=== PATIENT | male | born 1970 | race Caucasian/White ===

== ENCOUNTER 2019-04-25 15:28 | Observation (INO) ==
[2019-04-25] MEDS ORDERED: NS 1,000 ML IV PRN (15:40)
--- NOTE | 2019-04-25 16:05 | Diag Imaging Result Doc PS360 ---
EXAM: CT HEAD W/O CONTRAST HISTORY: stroke like TECHNIQUE: CT head without intravenous contrast COMPARISON: 12/19/2018 FINDINGS: No parenchymal hemorrhage. No epidural or subdural hematoma. No subarachnoid hemorrhage. No mass identified on this noncontrasted exam. No hydrocephalus. Small amount mucus in the ethmoid sinuses. IMPRESSION: No hemorrhage. Negative brain CT without contrast. This exam was performed using automated exposure control, adjustment of mA or kV according to patient size, and/or use of iterative reconstruction technique. Electronically signed by Thanh Bowser 04/25/2019 4:03 PM
--- NOTE | 2019-04-25 16:06 | Diag Imaging Result Doc PS360 ---
EXAM: CHEST-PORTABLE INDICATION: Stroke like TECHNIQUE: One view COMPARISON: None. FINDINGS: The lungs are grossly clear. There is no discrete pleural fluid collection or pneumothorax. The cardiomediastinal silhouette and central vasculature are grossly unremarkable. IMPRESSION: No evidence of acute pathology by plain radiograph. Electronically signed by Javi Nelson 04/25/2019 4:03 PM
--- NOTE | 2019-04-25 16:08 | Diag Imaging Result Doc PS360 ---
EXAM : CT CERVICAL SPINE W/O CONTRAST HISTORY: neck pain TECHNIQUE: CT cervical spine without contrast COMPARISON: None. FINDINGS: Mild reversal of the normal curvature. No precervical soft tissue swelling. No subluxation. No fracture. No disc herniation identified. IMPRESSION: Cervical spine: No acute fracture. This exam was performed using automated exposure control, adjustment of mA or kV according to patient size, and/or use of iterative reconstruction technique. Electronically signed by Thanh Bowser 04/25/2019 4:05 PM
[2019-04-25 16:34] LABS: BASO# 0.09 X1000 (0.0-0.2); BASO% 0.9 % (0.0-0.8); EOS# 0.21 X1000 (0.0-0.7); EOS% 2.1 % (0.0-10.0); HEMATOCRIT 47.3 % (42.0-52.0); IMM GRAN# 0.02 X1000 (0.0-0.04); IMM GRAN% 0.2 % (0.0-0.5); LYMPH# 2.43 X1000 (1.2-3.4); LYMPH% 23.8 % (20.5-51.1); MCH 26.7 PG (27-31); MCHC 31.7 g/dL (33-37); MCV 84.3 FL (81-99); MONO# 0.85 X1000 (0.11-0.59); MONO% 8.3 % (1.7-9.3); MPV 10.4 FL (7.4-10.4); NEUT# 6.59 X1000 (1.4-6.5); NEUT% 64.7 % (42.2-75.2); PLT 257 X1000 (130-400); RBC 5.61 XMIL (4.7-6.1); RDW 14.8 % (11.5-14.5); WBC 10.19 X1000 (4.8-10.8)
[2019-04-25 17:06] LABS: AGAP 12; ALKALINE PHOSPHATASE 68 U/L (32-122); BUN 13 mg/dL (8-22); CALCIUM 8.6 mg/dL (8.8-10.2); CHLORIDE 103 mmol/L (98-107); COSMO 275; CREATININE 0.8 mg/dL (0.7-1.2); ESTIMATED GFR > 60; GLUCOSE 91 mg/dL (70-104); GOT 20 U/L (10-34); GPT 19 U/L (10-44); POTASSIUM 4.5 mmol/L (3.5-5.1); SODIUM 138 mmol/L (136-145); TCO2 24 mmol/L (25-35)
[2019-04-25 17:15] LABS: URINE SOURCE CLEAN CATCH
[2019-04-25 17:20] LABS: BILIRUBIN URINE NEGATIVE (NEGATIVE); BLOOD URINE NEGATIVE (NEGATIVE); COLOR YELLOW; GLUCOSE URINE NEGATIVE (NEGATIVE); KETONE URINE NEGATIVE (NEGATIVE); LEUKOCYTES URINE NEGATIVE (NEGATIVE); NITRITE URINE NEGATIVE (NEGATIVE); PROTEIN URINE NEGATIVE (NEGATIVE); SP GRAVITY URINE 1.007; TURBIDITY URINE CLEAR (CLEAR); UROBILINOGEN URINE NORMAL (NORMAL)
[2019-04-25 17:22] LABS: UR EPITHELIAL CELLS <10 /HPF (<10); URINE BACTERIA NEGATIVE /HPF; URINE RBC <10 /HPF (<10); URINE WBC <10 /HPF (<10)
[2019-04-25 17:23] LABS: INR 0.96; PROTIME 13.3 Seconds (11.0-16.0)
[2019-04-25 17:24] LABS: PTT 35.1 Seconds (22.3-41.8)
[2019-04-25 17:30] LABS: UR AMPHETAMINES QUAL NONE DETECTED (NONE DETECT); UR BARBITUATES QUAL NONE DETECTED (NONE DETECT); UR BENZODIAZEPIN QUAL NONE DETECTED (NONE DETECT); UR CANNABINOIDS QUAL NONE DETECTED (NONE DETECT); UR METHADONE QUAL NONE DETECTED (NONE DETECT); UR METHAMPHETAMINE QUAL NONE DETECTED (NONE DETECT); UR OPIATES QUAL NONE DETECTED (NONE DETECT); UR OXYCODONE QUAL NONE DETECTED (NONE DETECT); UR PCP QUAL NONE DETECTED (NONE DETECT); UR PROPOXYPHENE QUAL NONE DETECTED (NONE DETECT); UR TCA QUAL NONE DETECTED (NONE DETECT)
[2019-04-25 17:31] LABS: UR COCAINE QUAL NONE DETECTED (NONE DETECT)
--- NOTE | 2019-04-25 17:41 | PROVIDER DOCUMENTATION ---
This chart was entered by Katlyn Dallas Scribe, acting as scribe for Blank Cuellar MD. HPI-General Adult - General Chief Complaint: STROKE ALERT Stated Complaint: CHEST PAIN, LEFT SIDE NUMBNESS Time Seen by Provider: 04/25/19 15:43 Source: patient Allergies/Adverse Reactions: Patient Allergies Allergy/AdvReac Type Severity Reaction Status Date / Time Penicillins AdvReac HIVES Verified 04/25/19 16:40 Home Medications: Home Medication List Medication Instructions Recorded Confirmed Last Taken Type Lisinopril 1 tab PO DAILY 12/19/18 04/25/19 04/25/19 History 40mg Escitalopram Oxalate [Lexapro] 20 mg PO DAILY 04/25/19 04/25/19 04/25/19 09:00 History Pantoprazole [Protonix] 40 mg PO DAILY 04/25/19 04/25/19 04/25/19 09:00 History - History of Present Illness -Gen Adult Nature of Presenting Problems: 48 yowm presents to the ed via pov with multiple complaints. pt sts he noted around 11am today PINEDA, neck pain, mouth droop and chest pain with mild rt sided facial numbness. pt ambulated to er desk without assist and speech is clear on exam. pt is anxious and CC is PINEDA with neck pain. Location of Pain/Injury: reports: head, chest Pain Radiation: reports: neck Quality of Pain: reports: aching Severity: reports: severe Onset/Duration: reports: this morning (1100) Timing: reports: still present, constant, getting worse Context/Activities at Onset: reports: light activity Modifying Factors: improves with: nothing Associated Symptoms: reports: back/neck pain (posterior neck pain), chest pain, headaches, malaise, other (mouth droop with decreased sensation to rt face). denies: cough, diarrhea, fever/chills, nausea, shortness of breath, vomiting, weakness Similar Symptoms Previously?: No Recently seen or treated by another doctor?: No Review of Systems - Adult - REVIEW OF SYSTEMS - ADULT Constitutional: denies: chills, fever Eyes: denies: blurred vision, double vision Ears, Nose, Mouth & Throat: reports: no symptoms reported Cardiovascular: reports: see HPI, chest pain. denies: palpitations Respiratory: denies: cough, shortness of breath, wheezing Gastrointestinal: denies: diarrhea, nausea, vomiting Genitourinary: reports: no symptoms reported Musculoskeletal: reports: see HPI, neck pain. denies: back pain Integumentary: reports: no symptoms reported Neurological: reports: see HPI, headache/migraines, numbness (rt face), other (mouth droop). denies: ataxia, dizziness/vertigo, slurred speech Psychiatric: reports: no symptoms reported Endocrine: reports: no symptoms reported Hematologic/Lymphatic: reports: no symptoms reported Allergic/Immunologic: reports: no symptoms reported All Other Systems: Reviewed and Negative Past History - Adult - PAST MEDICAL HISTORY-ADULT Review of Records: reports: Old Records Reviewed, Nursing Assessment Review, Medications Reviewed, Social history reviewed & non-contributory. Major Childhood Illnesses: reports: denies history Cardiovascular: reports: HTN Respiratory: reports: denies history Gastrointestinal: reports: denies history Genitourinary: reports: kidney stones Musculoskeletal: reports: denies history Neurological: reports: denies history Psychiatric: reports: denies history Endocrine/Immune: reports: denies history Other Conditions: reports: denies history - PRIOR SURGERIES/PROCEDURES Surgical/Procedure History: reports: cholecystectomy - IMMUNIZATION STATUS Childhood Immunizations: See Nurse Assessment Flu Vaccine: See Nurse Assessment - FAMILY HISTORY Family History: reviewed, not pertinent - SOCIAL HISTORY Smoking: denies Substance Use: denies Living Situation: family Physical Exam-General - PHYSICAL EXAM-ADULT Initial Vital Signs Reviewed: Yes - CONSTITUTIONAL General Appearance: alert, mild distress, obese, anxious - EYES Eyes: PERRL/EOMI, pink conjunctivae - HEAD, EARS, NOSE, MOUTH & THROAT HENMT: moist mucous membranes, other (droop noted to mouth, numbness to rt side. pt has bilateral brow movement) - NECK Neck: normal inspection, tender lateral (posterior) - RESPIRATORY Respiratory: chest non-tender, lungs clear, normal breath sounds - CARDIOVASCULAR Cardiovascular: normal peripheral pulses, regular rate, rhythm - CHEST (BREASTS) Chest/Breast: deferred - GASTROINTESTINAL (ABDOMEN) Abdominal Exam: normal bowel sounds, non tender, soft - GENITOURINARY Male Genitalia: deferred Rectal Exam: deferred Hemoccult Exam: deferred - LYMPHATIC Lymphatic: no adenopathy - MUSCULOSKELETAL Back Exam: normal inspection, no CVA tenderness, no vertebral tenderness Extremity: normal range of motion, non-tender, normal gait, normal inspection, normal capillary refill, pelvis stable - SKIN Integumentary: normal color, normal turgor, warm/dry - NEUROLOGIC Neurologic: facial droop, sensory deficit (rt face). negative: aphasia, focal weakness, motor weakness - PSYCHIATRIC Psych/Mental Status: normal thought content, normal thought process, oriented x 3, anxious Progress - PLAN OF CARE/RESULTS Progress/Plan/Lab Results: Vital Signs - 8 hr 04/25/19 15:37 Temperature 98 F Pulse Rate 73 Respiratory Rate 20 Blood Pressure 167/100 O2 Sat by Pulse Oximetry 98 Laboratory Results - last 24 hr 04/25/19 15:33 POC Glucose 74 Orders Category Date Time Status Cardiac Monitoring DIRECTED Care 04/25/19 15:40 Active Finger Stick Blood Sugar (ED) DIRECTED Care 04/25/19 15:40 Active Misc. NRSG Communication Order DIRECTED Care 04/25/19 15:40 Active Oxygen Therapy- ED Nursing DIRECTED Care 04/25/19 15:40 Active Saline Loc NOW Care 04/25/19 15:40 Active CHEST-PORTABLE [RAD] Stat Exams 04/25/19 15:[address] HEAD W/O CONTRAST [CT] Stat Exams 04/25/19 15:[address] NECK W/O CONTRAST [CT] Stat Exams 04/25/19 15:44 Ordered CBC WITH ELECTRONIC DIFF [HEME] Stat Lab 04/25/19 15:40 Ordered COMPREHENSIVE METABOLIC PANEL [CHEM] Stat Lab 04/25/19 15:40 Uncollected PROTIME WITH INR [COAG] Stat Lab 04/25/19 15:40 Uncollected PTT [COAG] Stat Lab 04/25/19 15:40 Uncollected TROPONIN T HIGH SENSITIVITY Stat Lab 04/25/19 15:40 Uncollected URINALYSIS W/POSS RFLX CULT [URINALYSIS] Stat Lab 04/25/19 15:40 Uncollected URINE DRUG SCREEN PL Stat Lab 04/25/19 15:40 Uncollected 0.9% Sodium Chloride Inj [Ns] 1,000 ml Med 04/25/19 15:40 Ordered IV Wide Open mls/hr EKG [EKG] Stat Ther 04/25/19 15:40 Ordered Result Diagrams: 04/26/19 05:28 04/26/19 05:28 - REASSESSMENT Reassessment #1 Time Reassessed: 16:10 (dr at bedside speaking with pt) Status: unchanged Reassessment #2 Time Reassessed: 17:24 (pt has calmed and in no distress) Status: improving - XRAY 1 XRAY: Bilateral XRAY Study: Chest Impression: See EMR Report (EXAM: CHEST-PORTABLE INDICATION: Stroke like TECHNIQUE: One view COMPARISON: None. FINDINGS: The lungs are grossly clear. There is no discrete pleural fluid collection or pneumothorax. The cardiomediastinal silhouette and central vasculature are grossly unremarkable. IMPRESSION: No evidence of acute pathology by plain radiograph. Electronically signed by Javi Nelson 04/25/2019 4:03 PM 04/25/19 1603 Interpreting Physician: Javi Nelson MD Dictated Date/Time: 04/25/19 160 cc: Blank Cuellar MD; None,PCP) - CT/MRI 1 CT Study: Cervical Spine Impression: See EMR Report (EXAM : CT CERVICAL SPINE W/O CONTRAST HISTORY: neck pain TECHNIQUE: CT cervical spine without contrast COMPARISON: None. FINDINGS: Mild reversal of the normal curvature. No precervical soft tissue swelling. No subluxation. No fracture. No disc herniation identified. IMPRESSION: Cervical spine: No acute fracture. This exam was performed using automated exposure control, adjustment of mA or kV according to patient size, and/or use of iterative reconstruction technique. Electronically signed by Thanh Bowser 04/25/2019 4:05 PM 04/25/19 1605 Interpreting Physician: Thanh Bowser MD Dictated Date/Time: 04/25/19 1603 cc: Blank Cuellar MD; None,PCP) 2 CT Study: Head Impression: See EMR Report (EXAM: CT HEAD W/O CONTRAST HISTORY: stroke like TECHNIQUE: CT head without intravenous contrast COMPARISON: 12/19/2018 FINDINGS: No parenchymal hemorrhage. No epidural or subdural hematoma. No subarachnoid hemorrhage. No mass identified on this noncontrasted exam. No hydrocephalus. Small amount mucus in the ethmoid sinuses. IMPRESSION: No hemorrhage. Negative brain CT without contrast. This exam was performed using automated exposure control, adjustment of mA or kV according to patient size, and/or use of iterative reconstruction technique. Electronically signed by Thanh Bowser 04/25/2019 4:03 PM 04/25/19 1603 Interpreting Physician: Thanh Bowser MD Dictated Date/Time: 04/25/19 1601 cc: Blank Cuellar MD; None,PCP) - CONSULTS/PCP/HOSPITALIST Notification #1 *Consult/PCP/Hospitalist*: hospitalist dr jose Time Discussed: 17:25 Consult Disposition: Will see in ED, Admit Departure - Departure Date of Disposition Decision: 04/25/19 Time of Disposition Decision: 17:40 DIAGNOSIS: Facial palsy Disposition: ADMITTED INPATIENT 09 Certified Medical Emergency: Emergent Condition: Good - Critical Care Note This patient required my direct & personal management of CC.: Yes Total Time (mins): 36 Critical Care Statement: This patient required my direct personal management to treat or rule out processes, the absence of which, could potentiallly result in sudden, clinically significant life or limb threatening deterioration. Attestation - Physician/ JUAN DIEGO Attestation Patient care was provided by Advanced Practice Provider:: No The physician spent face to face time with patient:: Yes Advanced Practice Provider documentation review:: Supervising physician onsite and consulted in the evaluation and care of this patient. The physician did have a face to face encounter with the patient. This chart was documented by the indicated scribe, (Katlyn Dallas Scribe) and accurately reflects the services I performed and decisions made by Ludy ventura,Blank Sidhu MD, as attested by the provider's signature.
--- NOTE | 2019-04-25 21:43 | HISTORY AND PHYSICAL ---
CHIEF COMPLAINT: Left face numbness, chest pressure. HISTORY OF PRESENT ILLNESS: The patient is a very pleasant 48-year-old male who presented to the ER noting that he is having some chest pressure, shortness of breath, and tightness in his chest. States that he chronically has neck pain. Thankfully, CT was effectively negative. He had a head CT in the ER as well that was negative. Notes he is having difficulty smiling with weakness on his right side of his face, and has difficulty closing his right eye. States he has a significant headache and neck pain. He has been coughing and congested. He has been very anxious, nervous and worried. ALLERGIES: Penicillin causing hives. MEDICATIONS: Lisinopril. PAST MEDICAL HISTORY: Significant for renal stones, hypertension. PAST SURGICAL HISTORY: Cholecystectomy. FAMILY HISTORY: Noncontributory. SOCIAL HISTORY: The patient denies smoking or illicit substance use. He is employed; in fact, he was at work when his symptoms started. PHYSICAL EXAMINATION: VITAL SIGNS: Temperature 98, pulse 73, respiratory rate 20, BP 167/100, saturation 98% on room air. GENERAL: Patient is awake, pleasant. He is in no current respiratory distress. His speech is regular. Memory is intact. He was able to ambulate through the teresa to the exam room. HEENT: Normocephalic. He does have right-sided numbness as well as facial droop on the right side. He is able to extend both his eyebrows. He is unable to close his right eye tightly. NECK: Supple. CARDIOVASCULAR: Regular rate. No murmurs. CHEST: Clear, nonlabored. No wheezing. ABDOMEN: Soft, obese, nondistended, nontender. EXTREMITIES: Moves all extremities. NEUROLOGIC: No focal neurological changes otherwise. He has no focal weakness on the extremities. No focal appreciable numbness on his extremities. ASSESSMENT: 1. Hypertension with poor control. 2. Acute stress reaction. 3. Headache. 4. Facial palsy. Certainly looks like Bels palsy. PLAN: We are going to admit patient to the hospital, rule out PR. We are going to check his CT head, which has been done. Carotid in the a.m., and will follow his blood pressures. Further orders as needed. cc: Matt Ma MD
[2019-04-26 06:50] LABS: HEMATOCRIT 45.7 % (42.0-52.0); HEMOGLOBIN 14.3 g/dL (14.0-18.0); MCH 26.6 PG (27-31); MCHC 31.3 g/dL (33-37); MCV 84.9 FL (81-99); RBC 5.38 XMIL (4.7-6.1); RDW 14.9 % (11.5-14.5); WBC 10.77 X1000 (4.8-10.8)
[2019-04-26] MEDS ORDERED: PROTONIX PO SCH (07:00)
[2019-04-26 07:24] LABS: AGAP 12; ALBUMIN 3.4 g/dL (3.5-5.0); ALKALINE PHOSPHATASE 61 U/L (32-122); BUN 14 mg/dL (8-22); CALCIUM 8.7 mg/dL (8.8-10.2); CHLORIDE 103 mmol/L (98-107); COSMO 275; CREATININE 0.8 mg/dL (0.7-1.2); ESTIMATED GFR > 60; GLUCOSE 86 mg/dL (70-104); GOT 20 U/L (10-34); GPT 18 U/L (10-44); MAGNESIUM 2.1 mg/dL (1.5-2.7); POTASSIUM 4.3 mmol/L (3.5-5.1); SODIUM 138 mmol/L (136-145); TCO2 23 mmol/L (25-35); TOTAL PROTEIN 6.8 g/dL (6.3-8.3)
--- NOTE | 2019-04-26 07:43 | Vascular Study Report ---
EXAM: Carotid Ultrasound - 04/25/2019 HISTORY: cva TECHNIQUE: Carotid flow studies COMPARISON: None. FINDINGS: There is intimal thickening at the right carotid bulb. Maximal systolic velocity in the right internal carotid is 74 cm/s, and maximum diastolic velocity is 33 cm/s. The right internal to common carotid systolic velocity ratio is 0.8. The flow velocities and ratio are consistent with 0-39% stenosis at the right internal carotid. The right vertebral demonstrates antegrade flow. There is intimal thickening at the left carotid bulb. Maximal systolic velocity in the left internal carotid is 72 cm/s, and maximum diastolic velocity is 30 cm/s. The left internal to common carotid systolic velocity ratio is 0.7. The flow velocities and ratio are consistent with 0-39% stenosis at the left internal carotid. The left vertebral demonstrates antegrade flow. IMPRESSION: 0-39% stenosis at right internal carotid. 0-39% stenosis at left internal carotid. Electronically signed by Red Almanzar 04/26/2019 7:41 AM
[2019-04-26] MEDS ORDERED: LEXAPRO PO SCH (09:00)
[2019-04-26] MEDS ORDERED: PRINIVIL PO SCH (09:00)
--- NOTE | 2019-04-26 09:12 | ECHO REPORT ---
ORDER DATE: 04/26/2019 INTERPRETING PHYSICIAN: Boris Griffiths MD REQUESTING PHYSICIAN: Hospitalist at [facility]. INDICATION: Hypertension. Stroke. M-MODE MEASUREMENTS: Left ventricle end diastole: 5.4 cm. Left ventricle end systole: 2.3 cm. Posterior wall: 1.2 cm. Interventricular septum: 1.2 cm. Left atrium: 4.3 cm. Aortic diameter: 3.5 cm. SUMMARY OF 2-DIMENSIONAL IMAGIN. Left ventricular function is normal. Ejection fraction is estimated at 63%. There is no wall motion abnormality noted. 2. The left atrium appears to be significantly enlarged. 3. The aortic valve has three cusps and they open normally. Color flow mapping is unremarkable. There is no stenosis. 4. The tricuspid valve looks normal. Color flow mapping is unremarkable. 5. Pulmonary pressure is estimated at 22 mmHg to 27 mmHg. 6. The pulmonary valve is normal. Color flow mapping is unremarkable. 7. The mitral valve looks normal. Color flow mapping is unremarkable. 8. Pulse wave Doppler of mitral inflow is normal. 9. Tissue Doppler of septal and lateral mitral annulus averages 8 cm. 10.Pulmonary venous flow is normal. 11.There is no diastolic dysfunction. 12.There is no pericardial effusion and no sign of thrombus. SUMMARY: In summary, this study shows: 1. Normal left ventricular systolic function. 2. Moderately enlarged left atrium. 3. Trivial degree of mitral and tricuspid regurgitation. 4. No diastolic dysfunction. 5. Pulmonary pressure 22 mmHg to 27 mmHg. Clinical correlation is recommended. cc: MD Matt Cox MD
[2019-04-26 12:21] VITALS: BP 118/40
[2019-04-26] MEDS ORDERED: PNEUMOVAX 23 IM ONE (16:13)
[2019-04-26] MEDS ORDERED: FLU VACCINE IM ONE (16:13)
--- NOTE | 2019-04-27 05:22 | DISCHARGE SUMMARY ---
ADMISSION DATE: 04/25/2019 DISCHARGE DATE: 04/26/2019 DISCHARGE DIAGNOSIS: 1. Guerrero's palsy. 2. Hypertension with poor control, improved blood pressure 125/73 on discharge. 3. Acute stress reaction. CONSULTATIONS: None. PROCEDURES: Carotid was normal. Echo was normal. BRIEF HOSPITAL COURSE: The patient is a 48-year-old male who presented to the hospital with right- sided facial numbness and difficulty closing his right eye. He had no other neurologic symptoms. Tongue thrust was normal. Speech was normal. Swallowing was normal. He had no focal weakness or numbness of his upper or lower extremities. His blood pressures were elevated. He has been coughing and congested lately. He has had a lot of stress at home as well. Thankfully, his symptoms have improved. DISPOSITION: Patient will be discharged home. We did discuss with him the importance of taking his blood pressure medications. We will continue with Valtrex and steroid Dosepak. He will follow up outpatient with treatment facility of choice. TIME SPENT: 30 minutes was spent in total care. cc: Matt Ma MD
--- NOTE | 2019-04-27 15:03 | DISCHARGE SUMMARY ---
ADMISSION DATE: 04/25/2019 DISCHARGE DATE: 04/26/2019 ADMISSION DIAGNOSES: 1. Hypertension with poor control. 2. Acute stress reaction. 3. Headache. 4. Facial palsy. DISCHARGE DIAGNOSES: 1. Hypertension with poor control. 2. Acute stress reaction. 3. Headache. 4. 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 CONSULTATIONS: None. SURGERIES/PROCEDURES: None HOSPITAL COURSE: Mr. Leo Ramírez is a 48-year-old male who presented to the emergency department here at [facility] with complaints of some chest pressure and left facial numbness. There was some shortness of breath. He has chronic neck pain. Initial CT was negative. He had carotid ultrasound that was negative. He had an echocardiogram that was not abnormal and was having difficulty with smiling on the right side of his face and closing his right eyelid and was complaining of significant headache and neck pain, coughing and congestion, very nervous and anxious or worried. Given the full workup being negative, it is most likely that he has Guerrero's palsy, probably stress-induced with viral infection recently with a head congestion. DISCHARGE VITAL SIGNS: Temperature 97.4 degrees, heart rate 64, respiratory rate 20, blood pressure 118/40, O2 saturation 97% on room air. DISCHARGE LAB DATA: White blood cells 10,000, hemoglobin 14, hematocrit 45, platelet count 253,000. Sodium 138, potassium 4.3, BUN 14, creatinine 0.8, glucose 86, calcium 8.7, magnesium is 2.1, bilirubin 0.50, AST 20, ALT 18, albumin 3.4. TSH was elevated at 7.29. Urinalysis negative. Urine drug screen negative. No cultures obtained. IMAGING: Chest x-ray is no acute findings. Head CT: No acute findings. Cervical spine CT: No acute findings. Carotid ultrasound 0 to 39 percent bilateral stenosis. Echocardiogram, normal left ventricular systolic function with a EF of 63%. Pulmonary pressure 22 to 27, moderately enlarged left atrium, mild degree of MR and TR. There was no diastolic dysfunction and EKG that was sinus. DISCHARGE MEDICATIONS: 1. Lexapro 20 mg p.o. daily. 2. Number next lisinopril 40 mg p.o. daily. 3. Protonix 40 mg p.o. daily. 4. Medrol Dosepak. 5. Valtrex 1000 mg p.o. t.i.d. for total of 15 tablets. DISCHARGE PHYSICIAN FOLLOWUP: Primary if he has it. DISCHARGE DIET: Regular. DISCHARGE ACTIVITY: As tolerated. DISCHARGE INSTRUCTIONS: If his condition worsens, seek medical attention. Otherwise, this will be treated with steroid dose pack and antiviral with Valtrex. Take medications as prescribed. DISCHARGE DISPOSITION: Home. Dictated by ALICIA Price for Matt Ma MD cc: ALICIA Price MD
== END 2019-04-26 17:08 | disposition home or self-care (01) ==
LOC: P.MEDSURG 15:28 → P.ED 15:28
PROVIDERS: ATTEND Family Medicine